=== PATIENT | female | born 1950 | race Caucasian/White ===

== ENCOUNTER → 2017-03-07 | Outpatient (CLI) | payer MEDICARE, BC ==
[~2017-03-07] MED LIST: ALAVERT10 MG PO; ASPIR 8181 MG PO; ATORVASTATIN CA80 MG PO; BUDESONIDE EC3 MG PO; CARAFATE1 GM/10 ML PO; CENTRUM SILVER1 EAC3 PO; CIMETIDINE400 MG PO; CITALOPRAM HBR40 MG PO; CLINDAMYCIN HC300 MG PO; DOXYCYCLINE HY100 MG PO; ENOXAPARIN60 MG/0.6 SQ; FERROUS SULFAT325 MG PO; FISH OIL 1,0001 EAC9 PO; FUROSEMIDE20 MG PO; GLIPIZIDE10 MG PO; HYDROCODON-ACE1 EA15 PO; LANTUS100 UNITS/ SQ; LEVAQUIN500 MG PO; LORATADINE10 MG PO; LOSARTAN POTAS100 MG PO; MONOPRIL PO; MULTAQ400 MG PO; MUPIROCIN22 GM TOP; NORCO 7.5-3251 EACH; OPTI-VITAMINS1 EACH PO; Z PRESERVISION PO; Z.0.ASACOL400 MG PO; Z.0.BENTYL20 MG PO; Z.0.CARAFATE1 GM PO; Z.0.COUMADIN10 MG PO; Z.0.COUMADIN2.5 MG PO; Z.0.COZAAR100 MG PO; Z.0.DEXILANT60 MG PO; Z.0.GLIPIZIDE ER10 M PO; Z.0.GLUCOPHAGE500 MG PO; Z.0.HUMULIN N100 UNI SQ; Z.0.HUMULIN R100 UNI SQ; Z.0.IRON18 MG PO; Z.0.LANTUS100 UNIT/1 SQ; Z.0.LASIX20 MG PO; Z.0.LIPITOR80 MG PO; Z.0.LOPRESSOR50 MG PO; Z.0.MULTAQ400 MG PO; Z.0.VERAPAMIL HCL40 PO; Z.1.COLESTIPOL HCL1 PO; Z.3.CENTRUM SILVER1 PO; ZETIA10 MG PO; [UNRECOGNIZED DRUG - OTHER] PO; [UNRECOGNIZED DRUG - OTHER] PO
--- NOTE | 2017-03-07 18:12 | Diagnostic Imaging Report ---
PROCEDURE:X-RAY RIGHT TOES, MINIMUM TWO VIEWS COMPARISON:None. INDICATIONS:RIGHT BIG TOE PAIN FINDINGS: BONES: Normal mineralization. No acute , displaced fracture or dislocation. No lytic or blastic lesion. Mild degenerative changes in the first metatarsophalangeal joint, with mild hallux valgus deformity. SOFT TISSUES:Mild soft tissue swelling in the medial aspect of the metatarsophalangeal joint. OTHER:Negative. CONCLUSION: Mild degenerative changes in the first metatarsophalangeal joint, with mild hallux valgus deformity. No acute abnormality. Mukund Fowler M.D. Dictated by: Mukund Fowler M.D. on 03/07/2017 at 18:20 Electronically approved by: Mukund Fowler M.D. on 03/07/2017 at 18:20
== END ==
LOC: RAD 15:58
PROVIDERS: ATTEND Family Medicine
DX: M79.674 Pain in right toe(s) (principal)

== ENCOUNTER → 2017-03-13 | Outpatient (CLI) | payer MEDICARE, BC | LOC: CARD 13:33 | PROVIDERS: ATTEND Family Medicine | DX: M79.605 Pain in left leg (principal); M79.604 Pain in right leg; M79.674 Pain in right toe(s) | CPT/HCPCS: 93922; 93925 ==

== ENCOUNTER → 2022-07-24 | Outpatient (CLI) | payer MEDICARE, OTHER | LOC: CARD 10:27 | PROVIDERS: ATTEND Family Medicine | DX: E11.40 Type 2 diabetes mellitus with diabetic neuropathy, unspecified (principal) | CPT/HCPCS: 93922; 93926 ==